=== PATIENT | female | born 1975 | race Caucasian/White ===

== ENCOUNTER 2020-03-13 06:45 | Outpatient (CLI) | payer OTHER ==
[2020-03-13 10:41] LABS: Hemoglobin 14.8 g/dL (12.0-16.0); Mean Corpuscular HGB CONC 33.3 G/DL (32.0-36.0); Mean Corpuscular Hemoglobin 30.6 PG (27.0-33.0); Mean Corpuscular Volume 92.1 fl (80.0-100.0); Platelet Count 349 10x3/uL (130-400); RBC Distribution Width 12.9 % (11.5-14.5); Red Blood Cell (RBC) Count 4.83 10x6/uL (3.90-5.20); White Blood Cell (WBC) Count 9.3 10x3/uL (4.5-11.0)
[2020-03-13 11:57] LABS: BHCG - Serum Negative (NEGATIVE); Pregs Control Background? CLEAR/WHITE (CLR/WHITE); Pregs Control Bar Appear? YES (CONTROL BAR)
[2020-03-14 14:44] LABS: SARS-CoV-2 MS2 Positive; SARS-CoV-2 N Gene Negative; SARS-CoV-2 S Gene Negative; SARS-CoV-2 by NAA Not Detected (NotDetected); SARS-CoV-2 orf1ab Negative
== END 2020-03-13 06:46 | disposition home or self-care (01) ==
LOC: LABBT 06:45
PROVIDERS: ATTEND Student in an Organized Health Care Education/Training Program
DX: Z01.818 Encounter for other preprocedural examination (principal); N92.1 Excessive and frequent menstruation with irregular cycle; Z20.828 Contact with and (suspected) exposure to other viral communicable diseases
CPT/HCPCS: 84703; 85027; 87635; U0003

== ENCOUNTER 2020-03-18 06:20 | Day surgery (SDC) | payer OTHER ==
[2020-03-15 13:16] VITALS: BMI 39.6
[2020-03-18] MEDS ORDERED: Famotidine/PF 20 mg/2ml Vial ONE ×2 (06:31→06:41)
[2020-03-18] MEDS ORDERED: Meperidine HCl/PF 25 MG/ML VIAL ONE ×2 (06:31→09:36)
[2020-03-18] MEDS ORDERED: Fentanyl 100 MCG/2 ML VIAL ONE (06:31)
[2020-03-18] MEDS ORDERED: Phenylephrine 10 MG/ML VIAL ONE (06:31)
[2020-03-18] MEDS ORDERED: Gabapentin 300 MG CAP ONE (06:41)
[2020-03-18] MEDS ORDERED: CeleCOXIB 100 MG CAP ONE (06:41)
[2020-03-18] MEDS ORDERED: Lidocaine 1% w/Epinephrine 1:100K 20 ML VIAL ONE (06:49)
[2020-03-18] MEDS ORDERED: Bupivacaine PF 0.5% 30 ML VIAL ONE (06:49)
[2020-03-18] MEDS ORDERED: SUGAMMADEX SODIUM 500 MG/5 ML VIAL ONE (07:27)
[2020-03-18] MEDS ORDERED: Midazolam HCl 2 mg/2 ml Vial ONE (07:28)
[2020-03-18] MEDS ORDERED: Meperidine HCl/PF 25 MG/ML VIAL SLOW IVP PRN (09:07)
[2020-03-18] MEDS ORDERED: Ondansetron HCl/PF 4 MG/2 ML Vial IVP PRN (09:07)
[2020-03-18] MEDS ORDERED: Promethazine HCl 25 MG/ML VIAL IM PRN (09:07)
[2020-03-18] MEDS ORDERED: Promethazine HCl 25 MG/ML VIAL SLOW IVP PRN (09:07)
[2020-03-18] MEDS ORDERED: HYDROcodone/Acetaminophen 5/325 mg Tablet ONE (10:53)
[2020-03-18] MEDS ORDERED: Rocuronium Bromide 10 MG/ML (10ML VIAL) ONE (11:54)
[2020-03-18] MEDS ORDERED: Albuterol Sulfate HFA (OR ONLY) ONE (11:54)
[2020-03-18] MEDS ORDERED: PROPOFOL 200 MG/20 ML VIAL ONE (11:54)
[2020-03-18] MEDS ORDERED: Lidocaine 1% PF 5 ML VIAL ONE (11:54)
[2020-03-18] MEDS ORDERED: Metoclopramide HCl 10 MG/2 ML VIAL ONE (11:54)
[2020-03-18] MEDS ORDERED: Ondansetron PF 4 MG/2 ML Vial ONE (11:54)
--- NOTE | 2020-03-19 11:50 | OP ---
DATE OF PROCEDURE: 03/18/2020 PREOPERATIVE DIAGNOSES: 1. Pelvic pain. 2. Menorrhagia. 3. Human papilloma virus. POSTOPERATIVE DIAGNOSES: 1. Pelvic pain. 2. Menorrhagia. 3. Human papilloma virus. PROCEDURE PERFORMED: Robotic-assisted total laparoscopic hysterectomy, left salpingo-oophorectomy, and right salpingectomy. ANESTHESIA: General endotracheal. QUALITY IMPROVEMENT ENGINEER SURGEON: Michelle Pollock PA-C ESTIMATED BLOOD LOSS: 20 mL. IVF: 1500 mL of crystalloid. URINE OUTPUT: 250 mL clear urine. PATHOLOGY: Uterus, cervix, bilateral fallopian tubes, and left ovary. FINDINGS: The uterus measured 8 cm. Normal-appearing cervix and vaginal mucosa. Physiologic adhesions of the sigmoid to the pelvic sidewall on the left. Normal left and right ovaries and fallopian tubes. Concluding the procedure, there was excellent hemostasis and ureter and bladders were noted to be intact. COMPLICATIONS: None. DRAINS: Ramirez catheter. DESCRIPTION OF PROCEDURE: The patient was taken to the operating room, where general anesthesia was obtained without difficulty. The patient was prepped and draped in a sterile fashion in dorsal lithotomy position. A Ramirez catheter was placed in the bladder. A speculum was placed in the vagina. The anterior lip of the cervix was grasped with a single-tooth tenaculum. The cervix was then progressively dilated with Yang dilators and the uterus then sounded to 8 cm. The BON manipulator was assembled with a 4 cm colpotomizer ring and an 8 cm tip. The manipulator was inserted into the uterus. The tenaculum and speculum were removed out of the vagina. Balloons were inflated and colpotomizer ring was advanced, fit snugly around the cervix. Legs were placed in low lithotomy. Attention was turned to the abdomen. A mixture of 0.5% Marcaine and 1% lidocaine with epi were infiltrated into the umbilicus. A 12 mm skin incision was made. A Veress needle was passed into the abdomen several times, initially getting high pressures. On the secondary try, the pressure was noted to be 2 mmHg and pneumoperitoneum was obtained. A 12 mm trocar was advanced into the abdomen and confirmed placement with a robotic camera. Steep Trendelenburg was obtained. Right and left lower quadrant 8 mm robotic trocars were placed under direct visualization after infiltrating with anesthetic mixture. A right upper quadrant 11 mm port was also placed under direct visualization after infiltrating with anesthetic. The robot was then docked. The right robotic arm contained monopolar scissors. Left robotic arm contained a fenestrated bipolar. During initial insufflation and visualization with the consult under control, there was noted to be intermittent preperitoneal insufflation and this was because the balloon on the camera trocar was actually inflated in the preperitoneal space. Therefore, the camera was undocked and the trocar was advanced further into the abdomen to secure its place intraperitoneally and this resolved the problem. At that time, the left fallopian tube and ovary were grasped and elevated. The IP ligament was identified. The physiologic adhesions that were filmy to the pelvic brim and sidewall were taken down to further visualize the IP at the pelvic brim as well as the ureter, which was done so easily. The IP was then cauterized just below the ovary multiple times and incised with the scissors on cautery and the mesovarium was cauterized with a fenestrator and incised with the scissors until it met the midportion of the round ligament that was cauterized and then incised. The posterior leaf of the broad ligament was incised down to the uterosacral. The retroperitoneum was bluntly brushed away from the uterine vessels. The anterior leaf of the broad ligament was also incised down to the level of the vesicouterine peritoneum and the vessels on the right side were adequately skeletonized with excellent visualization of the vessels themselves as well as identifying the ureter in the pelvic sidewall where it crossed underneath the uterine artery. Attention was turned to the right side where the right fallopian tube was grasped and elevated and just below the fallopian tube was cauterized and incised with the scissors and this was done so from lateral to medial until the medial portion was met of the fallopian tube that was clamped across, cauterized, incised, and then removed out of the abdomen. The utero-ovarian on the right side was cauterized multiple times and incised with the scissors sequentially down to the midportion of the round ligament that was cauterized and incised. The anterior leaf of the broad ligament was incised as well as posteriorly. Again, the retroperitoneum was dissected off this side with brushing and sweeping motion with a fenestrator and then the vessels were adequately skeletonized for excellent visualization to achieve hemostasis easily. The ureter was then identified in the pelvic sidewall on the right side and following this, the bladder flap was created ensuring a clear window by undermining with the fenestrator and then incising with the scissors. The bladder easily was taken down off the lower uterine segment and the pubocervical fascia carefully incising only supporting structures, not the actual bladder. Once this had been done below the colpotomizer ring, the pubocervical fascia was scored on with the scissors on cautery and further abdomen tissue was dissected down below the colpotomizer ring. At that point, the uterine pedicle on both sides was cauterized multiple times with a fenestrator. Colpotomy was then performed and once the vascular pedicle was met, this was then incised just above the internal os and then taken down by incising on its medial portion where the cardinal ligament was to allow a pedicle to not be retracted and sutured excellent hemostasis. The colpotomy was then completed and the uterus was pulled back into the vagina as a means to maintain pneumoperitoneum. The scissors were traded out for the needle lumber stacker driver and the vaginal cuff was irrigated copiously and hemostasis was achieved with a fenestrator. The vaginal cuff was then reapproximated with a barbed 2-0 PDS suture in a running fashion incorporating vaginal mucosa and posterior peritoneum in each bite and this was also run back for a second layer with the same suture. The needle was then cut and removed out of the abdomen. Irrigation was performed of the pelvis copiously and there was some oozing over the bladder flap and therefore FloSeal was called for. FloSeal was then placed over the vaginal cuff and the areas on the bladder flap that had been oozing. However, by this time, they were hemostatic. Low pressure check was performed and noted to have excellent hemostasis. The ureters were noted to be intact and vermiculating in the sidewall as well as the bladder. All instruments were then removed out of the abdomen and pneumoperitoneum was released. The robot was undocked. The fascia of the umbilical port was reapproximated with 0 Vicryl in a [id number] fashion. The skin was closed of all the sites with 4-0 Monocryl in a subcuticular fashion. Dermabond was applied. All instruments and specimens were removed out of the vagina. The vaginal cuff was checked and noted to be hemostatic. The patient tolerated the procedure well. Sponge, lap, and needle counts were correct x2. The patient was taken to recovery room in stable condition. The patient received Ancef 2 g prior to the procedure. Job ID: [id number]
== END 2020-03-18 11:40 | disposition home or self-care (01) ==
LOC: SDC 06:20
PROVIDERS: ATTEND Student in an Organized Health Care Education/Training Program
PROC: 0UT54ZZ Resection of Right Fallopian Tube, Percutaneous Endoscopic Approach (ICD-10-PCS; principal; 2020-03-18)
PROC: 0UT94ZZ Resection of Uterus, Percutaneous Endoscopic Approach (ICD-10-PCS; principal; 2020-03-18)
PROC: 0UT24ZZ Resection of Bilateral Ovaries, Percutaneous Endoscopic Approach (ICD-10-PCS; principal; 2020-03-18)
DX: N83.12 Corpus luteum cyst of left ovary (principal); N80.0 Endometriosis of uterus; N88.8 Other specified noninflammatory disorders of cervix uteri; A63.0 Anogenital (venereal) warts; M19.90 Unspecified osteoarthritis, unspecified site; F17.210 Nicotine dependence, cigarettes, uncomplicated; E66.9 Obesity, unspecified; Z68.39 Body mass index [BMI] 39.0-39.9, adult; Z79.899 Other long term (current) drug therapy; Z88.5 Allergy status to narcotic agent
CPT/HCPCS: 86850; 86900; 86901; 88307; J0690; J2175; J2250; J2370; J2405; J2704; J2765; J3010; S0020; S0028

== ENCOUNTER 2020-07-22 08:00 | Outpatient (CLI) | payer OTHER ==
[2020-07-22] MEDS ORDERED: Iopamidol-M 200 41% 10 ML VIAL FS ONE (13:23)
== END 2020-07-22 17:00 | disposition home or self-care (01) ==
LOC: BICCT 08:00
PROVIDERS: ATTEND Student in an Organized Health Care Education/Training Program
DX: R10.9 Unspecified abdominal pain (principal)
CPT/HCPCS: 74177; Q9966

== ENCOUNTER 2020-07-29 12:38 | Outpatient (CLI) | payer OTHER ==
[2020-07-29 14:24] LABS: Hemoglobin 16.3 g/dL (12.0-15.5); Mean Corpuscular HGB CONC 33.7 g/dL (32.0-36.0); Mean Corpuscular Hemoglobin 31.7 pg (27.0-33.0); Mean Platelet Volume 10.3 fl (7.4-10.4); Platelet Count 321 10x3/uL (150-450); RBC Distribution Width 13.1 % (11.5-14.5); Red Blood Cell (RBC) Count 5.14 10x6/uL (3.90-5.03); White Blood Cell (WBC) Count 12.2 10x3/uL (3.5-10.5)
[2020-07-29 15:05] LABS: BHCG - Serum Negative (NEGATIVE); Pregs Control Background? CLEAR/WHITE (CLR/WHITE); Pregs Control Bar Appear? YES (CONTROL BAR)
[2020-07-30 04:20] LABS: SARS-CoV-2 PCR by NAA Not Detected (NotDetected)
== END 2020-07-29 12:39 | disposition home or self-care (01) ==
LOC: LABBT 12:38
PROVIDERS: ATTEND Student in an Organized Health Care Education/Training Program
DX: Z01.812 Encounter for preprocedural laboratory examination (principal); Z20.822 Contact with and (suspected) exposure to COVID-19
CPT/HCPCS: 84703; 85027; 86850; 86900; 86901; 87635; U0003; U0005

== ENCOUNTER 2020-07-31 10:15 | Day surgery (SDC) | payer OTHER ==
[2020-07-30 09:59] VITALS: BMI 39.1
[2020-07-31] MEDS ORDERED: Bupivacaine 0.25% HCL 30 ML VIAL ONE (10:49)
[2020-07-31] MEDS ORDERED: Lidocaine 1% w/Epinephrine 1:100K 20 ML VIAL ONE (10:49)
[2020-07-31] MEDS ORDERED: Famotidine/PF 20 mg/2ml Vial ONE (10:56)
[2020-07-31] MEDS ORDERED: Gabapentin 300 MG CAP ONE (10:56)
[2020-07-31] MEDS ORDERED: CeleCOXIB 100 MG CAP ONE (10:57)
[2020-07-31] MEDS ORDERED: Midazolam HCl 2 mg/2 ml Vial ONE (10:57)
[2020-07-31] MEDS ORDERED: Fentanyl 100 MCG/2 ML VIAL ONE ×2 (11:38→14:48)
[2020-07-31] MEDS ORDERED: Lidocaine 2% Jelly 5 ML TUBE ONE (11:39)
[2020-07-31] MEDS ORDERED: Ketorolac Tromethamine 30 MG/ML VIAL ONE (12:30)
[2020-07-31] MEDS ORDERED: Ondansetron PF 4 MG/2 ML Vial ONE (12:30)
[2020-07-31] MEDS ORDERED: Glycopyrrolate 0.2 MG/ML 5 ML SYRINGE ONE (12:30)
[2020-07-31] MEDS ORDERED: Dexamethasone 20 MG/5 ML VIAL ONE (12:30)
[2020-07-31] MEDS ORDERED: Rocuronium Bromide 10 MG/ML (10ML VIAL) ONE (12:30)
[2020-07-31] MEDS ORDERED: PROPOFOL 200 MG/20 ML VIAL ONE (12:30)
[2020-07-31] MEDS ORDERED: ePHEDrine 50 MG/ML VIAL ONE (12:30)
[2020-07-31] MEDS ORDERED: Lidocaine 1% PF 5 ML VIAL ONE (12:30)
[2020-07-31] MEDS ORDERED: PHENYLEPHRINE-NS 100 MCG/ML 10 ML SYRINGE ONE (12:30)
== END 2020-07-31 16:30 | disposition home or self-care (01) ==
LOC: SDC 10:15
PROVIDERS: ATTEND Student in an Organized Health Care Education/Training Program
PROC: 0UB44ZX Excision of Uterine Supporting Structure, Percutaneous Endoscopic Approach, Diagnostic (ICD-10-PCS; principal; 2020-07-31)
PROC: 0DNU4ZZ Release Omentum, Percutaneous Endoscopic Approach (ICD-10-PCS; principal; 2020-07-31)
DX: N94.89 Other specified conditions associated with female genital organs and menstrual cycle (principal); N73.6 Female pelvic peritoneal adhesions (postinfective); N83.201 Unspecified ovarian cyst, right side; F17.210 Nicotine dependence, cigarettes, uncomplicated; Z79.899 Other long term (current) drug therapy; Z88.1 Allergy status to other antibiotic agents; Z88.2 Allergy status to sulfonamides; Z88.5 Allergy status to narcotic agent; Z90.710 Acquired absence of both cervix and uterus
CPT/HCPCS: 88305; 88312; J0690; J1100; J1885; J2250; J2405; J2704; J3010; J3490; S0020; S0028

== ENCOUNTER 2020-10-15 12:50 | Outpatient (CLI) | payer OTHER ==
[2020-10-15 14:29] LABS: #Basophils 0.1 10x3/uL (0.0-0.2); #Eosinphils 0.6 10x3/uL (0.0-0.5); #Monocytes 0.8 10x3/uL (0.0-1.1); #Neutrophils 4.6 10x3/uL (1.5-8.4); %Basophils 0.8 % (0.0-2.0); %Eosinophils 5.9 % (0.0-6.0); %Lymphocytes 41.4 % (18.0-47.0); %Monocytes 7.8 % (0.0-10.0); %Neutrophils 43.8 % (40.0-75.0); Mean Corpuscular HGB CONC 33.5 g/dL (32.0-36.0); Mean Corpuscular Hemoglobin 31.5 pg (27.0-33.0); Mean Corpuscular Volume 94.1 fl (81.6-98.3); Platelet Count 337 10x3/uL (150-450); RBC Distribution Width 12.4 % (11.5-14.5); Red Blood Cell (RBC) Count 4.76 10x6/uL (3.90-5.03); White Blood Cell (WBC) Count 10.4 10x3/uL (3.5-10.5)
[2020-10-16 06:54] LABS: SARS-CoV-2 PCR by NAA Not Detected (NotDetected)
== END 2020-10-15 12:51 | disposition home or self-care (01) ==
LOC: LABBT 12:50
PROVIDERS: ATTEND Surgery
DX: Z01.812 Encounter for preprocedural laboratory examination (principal); K40.90 Unilateral inguinal hernia, without obstruction or gangrene, not specified as recurrent; Z20.822 Contact with and (suspected) exposure to COVID-19
CPT/HCPCS: 85025; U0003; U0005

== ENCOUNTER 2020-10-18 09:43 | Day surgery (SDC) | payer OTHER ==
[2020-10-17 08:05] VITALS: BMI 39.6
[2020-10-18] MEDS ORDERED: Fentanyl 100 MCG/2 ML VIAL ONE ×2 (09:55→12:51)
[2020-10-18] MEDS ORDERED: Meperidine HCl/PF 25 MG/ML VIAL ONE (09:55)
[2020-10-18] MEDS ORDERED: SUGAMMADEX SODIUM 200 MG/2 ML VIAL ONE (09:56)
[2020-10-18] MEDS ORDERED: Famotidine/PF 20 mg/2ml Vial ONE (09:56)
[2020-10-18] MEDS ORDERED: Lidocaine 1% w/Epinephrine 1:100K 20 ML VIAL ONE (10:29)
[2020-10-18] MEDS ORDERED: Bupivacaine 0.25% HCL 30 ML VIAL ONE (10:29)
[2020-10-18] MEDS ORDERED: Rocuronium Bromide 10 MG/ML (10ML VIAL) ONE (10:59)
[2020-10-18] MEDS ORDERED: Ondansetron PF 4 MG/2 ML Vial ONE (10:59)
[2020-10-18] MEDS ORDERED: PROPOFOL 200 MG/20 ML VIAL ONE (10:59)
[2020-10-18] MEDS ORDERED: Lidocaine 1% PF 5 ML VIAL ONE (10:59)
[2020-10-18] MEDS ORDERED: Metoclopramide HCl 10 MG/2 ML VIAL ONE (10:59)
[2020-10-18] MEDS ORDERED: Ketorolac Tromethamine 30 MG/ML VIAL ONE (10:59)
[2020-10-18] MEDS ORDERED: Dexamethasone 20 MG/5 ML VIAL ONE (10:59)
[2020-10-18] MEDS ORDERED: HYDROcodone/Acetaminophen 5/325 mg Tablet ONE (13:42)
== END 2020-10-18 14:22 | disposition home or self-care (01) ==
LOC: SDC 09:43
PROVIDERS: ATTEND Surgery
PROC: 0YU64JZ Supplement Left Inguinal Region with Synthetic Substitute, Percutaneous Endoscopic Approach (ICD-10-PCS; principal; 2020-10-18)
PROC: 0WQF4ZZ Repair Abdominal Wall, Percutaneous Endoscopic Approach (ICD-10-PCS; principal; 2020-10-18)
DX: K40.90 Unilateral inguinal hernia, without obstruction or gangrene, not specified as recurrent (principal); K43.6 Other and unspecified ventral hernia with obstruction, without gangrene; K43.9 Ventral hernia without obstruction or gangrene; M19.90 Unspecified osteoarthritis, unspecified site; F17.210 Nicotine dependence, cigarettes, uncomplicated; Z79.899 Other long term (current) drug therapy; Z88.2 Allergy status to sulfonamides; Z88.5 Allergy status to narcotic agent; Z91.030 Bee allergy status
CPT/HCPCS: C1781; J0690; J1100; J1885; J2175; J2405; J2704; J2765; J3010; S0020; S0028

== ENCOUNTER 2021-01-01 15:07 | Outpatient (CLI) | payer OTHER | END 2021-01-01 15:08 | disposition home or self-care (01) | LOC: BICCT 15:07 | PROVIDERS: ATTEND Surgery | DX: R10.30 Lower abdominal pain, unspecified (principal); N28.1 Cyst of kidney, acquired; N83.8 Other noninflammatory disorders of ovary, fallopian tube and broad ligament; Z90.710 Acquired absence of both cervix and uterus | CPT/HCPCS: 74177 ==